=== PATIENT | female | born 1935 | race Caucasian/White ===

== ENCOUNTER 2016-09-24 08:25 | Inpatient (IN) | payer OTHER, BC ==
[~2016-09-24] VITALS: Ht 165.1 cm; Wt 57.4 kg
[2016-09-24 09:41] LABS: PLATELET COUNT 378 x10^3mcL (130-400); RED CELL DISTRIBUTION WIDTH 14.2 % (11.5-14.5)
[2016-09-24 09:42] LABS: BASOPHIL % 0 % (0-2)
[2016-09-24 09:49] LABS: CALCIUM 9.1 mg/dL (8.5-10.1); CARBON DIOXIDE 34.9 mmol/L (21-32); CHLORIDE SERUM 98 mmol/L (98-107); CREATININE SERUM 0.9 mg/dL (0.6-1.0); GLUCOSE SERUM 114 mg/dL (74-106); POTASSIUM SERUM 3.5 mmol/L (3.5-5.1); SODIUM SERUM 138 mmol/L (136-145)
[2016-09-24 09:53] LABS: ALKALINE PHOSPHATASE 114 U/L (46-116); ALT/SGPT 11 U/L (14-59); AST/SGOT 14 U/L (15-37); BILIRUBIN TOTAL 0.8 mg/dL (0.20-1.00); TOTAL PROTEIN, SERUM 7.5 g/dL (6.4-8.2)
[2016-09-24 09:54] LABS: ALBUMIN 2.9 g/dL (3.4-5.0)
[2016-09-24] MEDS ORDERED: NEU300 PO (13:23)
[2016-09-24] MEDS ORDERED: ASPIR 8181 MG PO (13:23)
[2016-09-24] MEDS ORDERED: ZANTAC 150150 MG PO (13:24)
[2016-09-24] MEDS ORDERED: NITROFURANTOIN100 MG PO (13:24)
[2016-09-24] MEDS ORDERED: SOTALOL HCL80 MG PO (13:24)
[2016-09-24] MEDS ORDERED: ARICEPT10 MG PO (13:24)
[2016-09-24] MEDS ORDERED: DIOVAN160 MG PO (13:25)
[2016-09-24 14:22] LABS: FREE T4 1.47 ng/dL (0.76-1.46); FREE THYROXINE INDEX 3.3 ug/dL (1.4-4.5); T4(THYROXINE) 9.6 ug/dL (4.7-13.3)
[2016-09-24 14:28] LABS: T3 TOTAL 1.03 ng/mL
[2016-09-24 16:55] VITALS: BP 154/70
[2016-09-24 17:23] VITALS: BP 154/70
[2016-09-24 18:00] VITALS: BP 143/53
[2016-09-24 21:57] VITALS: BP 127/73
[2016-09-25] VITALS (7 sets, daily range): BP systolic 123–146; BP diastolic 51–67; Ht 165.1 cm; Wt 57.4 kg
[2016-09-25 02:44] LABS: PLATELET COUNT 304 x10^3mcL (130-400); RED CELL DISTRIBUTION WIDTH 13.6 % (11.5-14.5)
[2016-09-25 02:46] LABS: CALCIUM 8.4 mg/dL (8.5-10.1); CARBON DIOXIDE 31.9 mmol/L (21-32); CHLORIDE SERUM 100 mmol/L (98-107); GLUCOSE SERUM 123 mg/dL (74-106); MAGNESIUM 1.6 mg/dL (1.8-2.4); PHOSPHOROUS 3.5 mg/dL (2.5-4.9); POTASSIUM SERUM 3.5 mmol/L (3.5-5.1); SODIUM SERUM 137 mmol/L (136-145)
[2016-09-25 05:38] LABS: BAND NEUTROPHIL 12 % (0-10); METAMYELOCTE 7 % (0-2); MONOCYTE 5 % (0-7); MYELOCYTE 5 % (0-2); SEGMENTED NEUTROPHILS 69 % (37-75)
[2016-09-25 05:41] LABS: rbc morphology (normal/abnorm) NORMAL (NORMAL)
[2016-09-25 05:42] LABS: PLATELET MORPHOLOGY LARGE PLATELET SEEN
[2016-09-25 15:31] LABS: LACTIC DEHYDROGENASE (LDH) 343 U/L (100-190)
[2016-09-25 16:05] LABS: GLUCOSE SERUM < 7 mg/dL (74-106)
[2016-09-25 16:11] LABS: UA SPECIFIC GRAVITY >=1.030 (1.005-1.035); microscopic required? YES; urine erythrocyte 1+ (NEGATIVE)
[2016-09-25 16:25] LABS: SOURCE FLUID PLEURAL
[2016-09-25 16:26] LABS: APPEARANCE FLUID HAZY; COLOR FLUID YELLOW
[2016-09-25 16:31] LABS: LYMPHOCYTE FLUID 10 %; RBC FLUID 375 /cumm; WBC FLUID 3970 /cumm
[2016-09-26 06:05] LABS: PLATELET COUNT 281 x10^3mcL (130-400)
[2016-09-26 06:17] LABS: CALCIUM 8.5 mg/dL (8.5-10.1); CHLORIDE SERUM 102 mmol/L (98-107); CREATININE SERUM 0.9 mg/dL (0.6-1.0); GLUCOSE SERUM 116 mg/dL (74-106); MAGNESIUM 2.8 mg/dL (1.8-2.4); POTASSIUM SERUM 3.7 mmol/L (3.5-5.1); SODIUM SERUM 138 mmol/L (136-145)
[2016-09-26 06:39] VITALS: BP 115/43
[2016-09-26 08:14] LABS: RED CELL DISTRIBUTION WIDTH 14.9 % (11.5-14.5)
[2016-09-26 10:00] VITALS: BP 110/56
[2016-09-26 10:34] LABS: BAND NEUTROPHIL 0 % (0-10); BASOPHIL 0 % (0-2); MONOCYTE 5 % (0-7); SEGMENTED NEUTROPHILS 94 % (37-75)
[2016-09-26 10:35] LABS: rbc morphology (normal/abnorm) ABNORMAL (NORMAL)
[2016-09-26 10:36] LABS: PLATELET MORPHOLOGY LARGE PLATELET SEEN
[2016-09-26 13:44] VITALS: BP 111/77
[2016-09-26 16:40] VITALS: BP 119/56
[2016-09-26 21:31] VITALS: BP 136/66
[2016-09-27 06:09] VITALS: BP 142/63
[2016-09-27 06:27] LABS: PLATELET COUNT 260 x10^3mcL (130-400); RED CELL DISTRIBUTION WIDTH 14.4 % (11.5-14.5)
[2016-09-27 07:01] LABS: CALCIUM 8.3 mg/dL (8.5-10.1); CARBON DIOXIDE 30.5 mmol/L (21-32); CHLORIDE SERUM 106 mmol/L (98-107); CREATININE SERUM 0.9 mg/dL (0.6-1.0); GLUCOSE SERUM 113 mg/dL (74-106); PHOSPHOROUS 2.5 mg/dL (2.5-4.9); POTASSIUM SERUM 4.2 mmol/L (3.5-5.1); SODIUM SERUM 139 mmol/L (136-145)
[2016-09-27 09:52] VITALS: BP 131/60
[2016-09-27 10:05] LABS: BAND NEUTROPHIL 0 % (0-10); BASOPHIL 0 % (0-2); MONOCYTE 4 % (0-7); SEGMENTED NEUTROPHILS 93 % (37-75)
[2016-09-27 10:07] LABS: rbc morphology (normal/abnorm) ABNORMAL (NORMAL)
[2016-09-27 14:04] VITALS: BP 134/58
[2016-09-27 18:08] VITALS: BP 134/72
[2016-09-27 22:08] VITALS: BP 114/75
[2016-09-28 07:01] VITALS: BP 152/82
[2016-09-28 07:10] LABS: CALCIUM 8.1 mg/dL (8.5-10.1); CARBON DIOXIDE 28.5 mmol/L (21-32); CHLORIDE SERUM 105 mmol/L (98-107); CREATININE SERUM 0.8 mg/dL (0.6-1.0); GLUCOSE SERUM 109 mg/dL (74-106); MAGNESIUM 1.8 mg/dL (1.8-2.4); PHOSPHOROUS 3.1 mg/dL (2.5-4.9); SODIUM SERUM 137 mmol/L (136-145)
[2016-09-28 07:51] LABS: PLATELET COUNT 233 x10^3mcL (130-400); RED CELL DISTRIBUTION WIDTH 13.8 % (11.5-14.5)
[2016-09-28 09:57] VITALS: BP 173/77
[2016-09-28 12:15] LABS: BAND NEUTROPHIL 1 % (0-10); BASOPHIL 0 % (0-2); MONOCYTE 5 % (0-7); SEGMENTED NEUTROPHILS 93 % (37-75)
[2016-09-28 12:16] LABS: PLATELET MORPHOLOGY PLATELETS NORMAL; rbc morphology (normal/abnorm) ABNORMAL (NORMAL)
[2016-09-28 12:28] VITALS: BP 133/76
[2016-09-28 18:10] VITALS: BP 135/63
[2016-09-28 21:40] VITALS: BP 147/69
[2016-09-29 06:36] LABS: PLATELET COUNT 272 x10^3mcL (130-400)
[2016-09-29 06:41] VITALS: BP 158/84
[2016-09-29 06:48] LABS: CALCIUM 8.3 mg/dL (8.5-10.1); CARBON DIOXIDE 29.3 mmol/L (21-32); CHLORIDE SERUM 104 mmol/L (98-107); CREATININE SERUM 0.7 mg/dL (0.6-1.0); GLUCOSE SERUM 103 mg/dL (74-106); MAGNESIUM 1.7 mg/dL (1.8-2.4); PHOSPHOROUS 3.1 mg/dL (2.5-4.9); POTASSIUM SERUM 4.8 mmol/L (3.5-5.1); SODIUM SERUM 137 mmol/L (136-145)
[2016-09-29 07:14] LABS: RED CELL DISTRIBUTION WIDTH 15.3 % (11.5-14.5)
[2016-09-29 09:25] VITALS: BP 163/79
[2016-09-29] MEDS ORDERED: LEVAQUIN750 MG PO (10:05)
[2016-09-29] MEDS ORDERED: CLEOCIN HCL300 MG PO (10:05)
[2016-09-29] MEDS ORDERED: COL100 PO (10:06)
[2016-09-29] MEDS ORDERED: LAC PO (10:06)
[2016-09-29] MEDS ORDERED: MECLIZINE HCL12.5 MG PO (10:06)
[2016-09-29 12:49] LABS: BAND NEUTROPHIL 2 % (0-10); BASOPHIL 0 % (0-2); MONOCYTE 7 % (0-7); SEGMENTED NEUTROPHILS 89 % (37-75); rbc morphology (normal/abnorm) NORMAL (NORMAL)
[2016-09-29 12:50] LABS: PLATELET MORPHOLOGY PLATELETS NORMAL
[2016-09-29] MEDS ORDERED: LEVAQUIN750 MG IV (17:02)
[2016-09-29] MEDS ORDERED: CLEOCIN HCL300 MG IV (17:02)
[2016-09-29 17:08] VITALS: BP 157/73
[2016-09-29] MEDS ORDERED: NOVAPLUS CLINDA1 SO1 IV (17:28)
[2016-09-29] MEDS ORDERED: LEV500PM IV (17:28)
[2016-09-29 17:33] VITALS: BP 157/73
== END 2016-09-29 19:35 | DRG 177 ==
LOC: ED 08:25 → DU 13:05 → MU 13:05 → DU 14:20 → MU 09-29 05:36
PROVIDERS: Family Medicine; ADMIT Family Medicine
PROC: 0W9B3ZZ Drainage of Left Pleural Cavity, Percutaneous Approach (ICD-10-PCS; principal; 2016-09-25)
DX: J69.0 Pneumonitis due to inhalation of food and vomit (principal); J96.00 Acute respiratory failure, unspecified whether with hypoxia or hypercapnia; G93.41 Metabolic encephalopathy; I50.43 Acute on chronic combined systolic (congestive) and diastolic (congestive) heart failure; N17.0 Acute kidney failure with tubular necrosis; J91.8 Pleural effusion in other conditions classified elsewhere; N39.0 Urinary tract infection, site not specified; E44.0 Moderate protein-calorie malnutrition; I11.0 Hypertensive heart disease with heart failure; R55 Syncope and collapse; G14 Postpolio syndrome; E78.5 Hyperlipidemia, unspecified; K21.9 Gastro-esophageal reflux disease without esophagitis; G30.9 Alzheimer's disease, unspecified; F02.80 Dementia in other diseases classified elsewhere, unspecified severity, without behavioral disturbance, psychotic disturbance, mood disturbance, and anxiety; Z86.73 Personal history of transient ischemic attack (TIA), and cerebral infarction without residual deficits; Z86.12 Personal history of poliomyelitis; Z68.23 Body mass index [BMI] 23.0-23.9, adult
CPT/HCPCS: 32555; 36600; 82947; 82962; 83880; 84439; 97110-GP; 97116-GP; 97530-GP; C1729; C9113; J1885; J1940; J1956; J2405; J3475; J3490; J7030; J7050; J7620; Q0092

== ENCOUNTER 2017-02-01 12:43 | Inpatient (IN) | payer OTHER, BC ==
[2017-02-01] VITALS (7 sets, daily range): BP systolic 73–91; BP diastolic 40–62
[~2017-02-01] VITALS: Ht 165.1 cm; Wt 51.0 kg
[~2017-02-01 12:43] MED LIST: ARICEPT10 MG PO; ASPIR 8181 MG PO; CLEOCIN HCL300 MG IV; CLEOCIN HCL300 MG PO; COL100 PO; DIOVAN160 MG PO; LAC PO; LEV500PM IV; LEVAQUIN750 MG IV; LEVAQUIN750 MG PO; MECLIZINE HCL12.5 MG PO; NEU300 PO; NITROFURANTOIN100 MG PO; NOVAPLUS CLINDA1 SO1 IV; SOTALOL HCL80 MG PO; ZANTAC 150150 MG PO
[2017-02-01 14:01] LABS: PLATELET COUNT 298 x10^3mcL (130-400)
[2017-02-01 14:05] LABS: RED CELL DISTRIBUTION WIDTH 18.1 % (11.5-14.5)
[2017-02-01 14:31] LABS: UA SPECIFIC GRAVITY >=1.030 (1.005-1.035); microscopic required? YES; urine erythrocyte TRACE (NEGATIVE)
[2017-02-01 14:33] LABS: BAND NEUTROPHIL 3 % (0-10); BASOPHIL 0 % (0-2); MONOCYTE 4 % (0-7); SEGMENTED NEUTROPHILS 89 % (37-75); rbc morphology (normal/abnorm) ABNORMAL (NORMAL)
[2017-02-01 14:45] LABS: CALCIUM 8.8 mg/dL (8.5-10.1); CHLORIDE SERUM 98 mmol/L (98-107); GLUCOSE SERUM 126 mg/dL (74-106); POTASSIUM SERUM 5.4 mmol/L (3.5-5.1); SODIUM SERUM 134 mmol/L (136-145)
[2017-02-01] MEDS ORDERED: ZANTAC 150150 MG PO ×2 (14:47→14:53)
[2017-02-01] MEDS ORDERED: ASPIRIN ADULT L81 M5 PO (14:47)
[2017-02-01] MEDS ORDERED: NITROFURANTOIN100 MG PO (14:48)
[2017-02-01] MEDS ORDERED: NEU300 PO (14:48)
[2017-02-01] MEDS ORDERED: SOTALOL HCL80 MG PO (14:49)
[2017-02-01 14:50] LABS: ALBUMIN 1.7 g/dL (3.4-5.0); ALKALINE PHOSPHATASE 165 U/L (46-116); ALT/SGPT 33 U/L (14-59); AST/SGOT 40 U/L (15-37); BILIRUBIN TOTAL 0.7 mg/dL (0.20-1.00); TOTAL PROTEIN, SERUM 7.5 g/dL (6.4-8.2)
[2017-02-01] MEDS ORDERED: ARICEPT10 MG PO (14:50)
[2017-02-01] MEDS ORDERED: DIOVAN160 MG PO (14:50)
[2017-02-01] MEDS ORDERED: EPZICOM1 TAB (14:51)
[2017-02-01] MEDS ORDERED: TRAMADOL HCL50 MG PO (14:51)
[2017-02-01 15:00] LABS: FREE T4 1.22 ng/dL (0.76-1.46); FREE THYROXINE INDEX 1.6 ug/dL (1.4-4.5)
[2017-02-01 15:20] LABS: MAGNESIUM 2.2 mg/dL (1.8-2.4); PHOSPHOROUS 3.7 mg/dL (2.5-4.9)
[2017-02-01 15:21] LABS: CHOLESTEROL/HDL RATIO 5.5
[2017-02-01 15:30] LABS: T3 TOTAL 0.42 ng/mL
[2017-02-02 04:00] VITALS: BP 100/56
[2017-02-02 07:27] LABS: CALCIUM 7.9 mg/dL (8.5-10.1); CARBON DIOXIDE 26.8 mmol/L (21-32); CHLORIDE SERUM 103 mmol/L (98-107); CREATININE SERUM 1.2 mg/dL (0.6-1.0); GLUCOSE SERUM 107 mg/dL (74-106); MAGNESIUM 2.1 mg/dL (1.8-2.4); PHOSPHOROUS 4.4 mg/dL (2.5-4.9); POTASSIUM SERUM 5.3 mmol/L (3.5-5.1); SODIUM SERUM 135 mmol/L (136-145)
[2017-02-02 07:33] LABS: PLATELET COUNT 216 x10^3mcL (130-400)
[2017-02-02 08:19] VITALS: Ht 165.1 cm; Wt 51.0 kg
[2017-02-02 08:38] VITALS: BP 91/50
[2017-02-02 09:46] LABS: BAND NEUTROPHIL 4 % (0-10); BASOPHIL 0 % (0-2); MONOCYTE 3 % (0-7); SEGMENTED NEUTROPHILS 89 % (37-75)
[2017-02-02 09:49] LABS: rbc morphology (normal/abnorm) ABNORMAL (NORMAL)
[2017-02-02 11:56] VITALS: BP 86/50
[2017-02-02 16:45] VITALS: BP 115/61
[2017-02-02 20:00] VITALS: BP 104/68
[2017-02-03 05:02] LABS: CALCIUM 7.5 mg/dL (8.5-10.1); CARBON DIOXIDE 22.8 mmol/L (21-32); CHLORIDE SERUM 104 mmol/L (98-107); CREATININE SERUM 1.2 mg/dL (0.6-1.0); GLUCOSE SERUM 87 mg/dL (74-106); POTASSIUM SERUM 4.8 mmol/L (3.5-5.1); SODIUM SERUM 137 mmol/L (136-145)
[2017-02-03 05:23] LABS: PLATELET COUNT 190 x10^3mcL (130-400)
[2017-02-03 05:52] LABS: BAND NEUTROPHIL 8 % (0-10); METAMYELOCTE 5 % (0-2); MONOCYTE 3 % (0-7); SEGMENTED NEUTROPHILS 82 % (37-75)
[2017-02-03 05:54] LABS: PLATELET MORPHOLOGY LARGE PLATELET SEEN; rbc morphology (normal/abnorm) ABNORMAL (NORMAL)
[2017-02-03 07:20] VITALS: BP 111/67
[2017-02-03 11:15] VITALS: BP 102/66
[2017-02-03 17:07] VITALS: BP 92/57
[2017-02-03 20:50] VITALS: BP 120/69
[2017-02-04] VITALS (7 sets, daily range): BP systolic 88–119; BP diastolic 39–63
[2017-02-04 06:30] LABS: CALCIUM 7.6 mg/dL (8.5-10.1); CARBON DIOXIDE 21.5 mmol/L (21-32); CHLORIDE SERUM 110 mmol/L (98-107); CREATININE SERUM 1.2 mg/dL (0.6-1.0); GLUCOSE SERUM 87 mg/dL (74-106); MAGNESIUM 1.9 mg/dL (1.8-2.4); PHOSPHOROUS 3.9 mg/dL (2.5-4.9); POTASSIUM SERUM 4.1 mmol/L (3.5-5.1); SODIUM SERUM 141 mmol/L (136-145)
[2017-02-04 06:40] LABS: PLATELET COUNT 149 x10^3mcL (130-400)
[2017-02-04 07:49] LABS: RED CELL DISTRIBUTION WIDTH 18.5 % (11.5-14.5)
[2017-02-04 11:08] LABS: BAND NEUTROPHIL 10 % (0-10); BASOPHIL 0 % (0-2); METAMYELOCTE 4 % (0-2); MONOCYTE 4 % (0-7); SEGMENTED NEUTROPHILS 80 % (37-75)
[2017-02-04 11:09] LABS: PLATELET MORPHOLOGY LARGE PLATELET SEEN; rbc morphology (normal/abnorm) ABNORMAL (NORMAL)
[2017-02-05] VITALS (8 sets, daily range): BP systolic 38–123; BP diastolic 18–86
[2017-02-05 05:00] LABS: PLATELET COUNT 134 x10^3mcL (130-400)
[2017-02-05 05:15] LABS: ALKALINE PHOSPHATASE 138 U/L (46-116); ALT/SGPT 24 U/L (14-59); AST/SGOT 30 U/L (15-37); BILIRUBIN TOTAL 0.4 mg/dL (0.20-1.00); CALCIUM 7.6 mg/dL (8.5-10.1); CARBON DIOXIDE 19.4 mmol/L (21-32); CHLORIDE SERUM 112 mmol/L (98-107); CREATININE SERUM 1.2 mg/dL (0.6-1.0); GLUCOSE SERUM 90 mg/dL (74-106); POTASSIUM SERUM 3.6 mmol/L (3.5-5.1); SODIUM SERUM 143 mmol/L (136-145)
[2017-02-05 05:17] LABS: TOTAL PROTEIN, SERUM 4.7 g/dL (6.4-8.2)
[2017-02-05 05:33] LABS: RED CELL DISTRIBUTION WIDTH 18.7 % (11.5-14.5)
[2017-02-05 05:56] LABS: BAND NEUTROPHIL 11 % (0-10); METAMYELOCTE 6 % (0-2); MONOCYTE 1 % (0-7); SEGMENTED NEUTROPHILS 80 % (37-75)
[2017-02-05 05:58] LABS: ovalocyte/elliptocyte 1+; rbc morphology (normal/abnorm) ABNORMAL (NORMAL); tear drop cell (dacryocyte) 1+
[2017-02-05 19:47] LABS: PLATELET COUNT 140 x10^3mcL (130-400)
[2017-02-05 19:56] LABS: CALCIUM 6.7 mg/dL (8.5-10.1); CARBON DIOXIDE 11.6 mmol/L (21-32); CHLORIDE SERUM 113 mmol/L (98-107); CREATININE SERUM 1.3 mg/dL (0.6-1.0); GLUCOSE SERUM 176 mg/dL (74-106); POTASSIUM SERUM 3.6 mmol/L (3.5-5.1); SODIUM SERUM 142 mmol/L (136-145)
[2017-02-05 19:59] LABS: RED CELL DISTRIBUTION WIDTH 19.4 % (11.5-14.5)
[2017-02-05 20:37] LABS: BAND NEUTROPHIL 12 % (0-10); BASOPHIL 0 % (0-2); METAMYELOCTE 5 % (0-2); MONOCYTE 12 % (0-7); SEGMENTED NEUTROPHILS 69 % (37-75); rbc morphology (normal/abnorm) ABNORMAL (NORMAL)
[2017-02-05 20:38] LABS: ovalocyte/elliptocyte 1+; tear drop cell (dacryocyte) 1+
[2017-02-06 03:09] VITALS: BP 127/78
[2017-02-06 04:54] VITALS: BP 62/27
[2017-02-06 06:09] LABS: CALCIUM 7.4 mg/dL (8.5-10.1); CHLORIDE SERUM 106 mmol/L (98-107); CREATININE SERUM 1.6 mg/dL (0.6-1.0); GLUCOSE SERUM 268 mg/dL (74-106); MAGNESIUM 2.2 mg/dL (1.8-2.4); POTASSIUM SERUM 5.2 mmol/L (3.5-5.1); SODIUM SERUM 134 mmol/L (136-145)
[2017-02-06 06:13] LABS: CARBON DIOXIDE 6.7 mmol/L (21-32)
[2017-02-06 06:16] LABS: PLATELET COUNT 101 x10^3mcL (130-400); RED CELL DISTRIBUTION WIDTH 19.3 % (11.5-14.5)
[2017-02-06 06:59] LABS: ATYPICAL LYMPH 1 %; BAND NEUTROPHIL 12 % (0-10); METAMYELOCTE 8 % (0-2); MONOCYTE 3 % (0-7); MYELOCYTE 1 % (0-2); SEGMENTED NEUTROPHILS 69 % (37-75); rbc morphology (normal/abnorm) ABNORMAL (NORMAL)
[2017-02-06 07:01] LABS: PATH REVIEW for HEMA YES
[2017-02-06 07:58] VITALS: BP 54/37
[2017-02-06 08:05] VITALS: BP 59/22
[2017-02-07 07:48] LABS: SOURCE FLUID PLEURAL FLUID
== END 2017-02-06 12:56 | disposition expired | DRG 853 ==
LOC: ED 12:43 → DU 14:06 → IC 14:06 → DU 15:12 → IC 21:45 → DU 02-03 11:41 → IC 02-05 18:02
PROVIDERS: Emergency Medicine; Family Medicine; ADMIT Family Medicine
PROC: 05HM33Z Insertion of Infusion Device into Right Internal Jugular Vein, Percutaneous Approach (ICD-10-PCS; 2017-02-01)
PROC: B543ZZA Ultrasonography of Right Jugular Veins, Guidance (ICD-10-PCS; 2017-02-01)
PROC: 0JB70ZZ Excision of Back Subcutaneous Tissue and Fascia, Open Approach (ICD-10-PCS; principal; 2017-02-02)
PROC: 0BH17EZ Insertion of Endotracheal Airway into Trachea, Via Natural or Artificial Opening (ICD-10-PCS; 2017-02-05)
PROC: 5A1935Z Respiratory Ventilation, Less than 24 Consecutive Hours (ICD-10-PCS; 2017-02-05)
PROC: 0W9930Z Drainage of Right Pleural Cavity with Drainage Device, Percutaneous Approach (ICD-10-PCS; 2017-02-06)
DX: A41.9 Sepsis, unspecified organism (principal); J69.0 Pneumonitis due to inhalation of food and vomit; J86.9 Pyothorax without fistula; J96.00 Acute respiratory failure, unspecified whether with hypoxia or hypercapnia; G93.41 Metabolic encephalopathy; I50.43 Acute on chronic combined systolic (congestive) and diastolic (congestive) heart failure; E43 Unspecified severe protein-calorie malnutrition; N17.0 Acute kidney failure with tubular necrosis; L89.153 Pressure ulcer of sacral region, stage 3; N39.0 Urinary tract infection, site not specified; A04.7 Enterocolitis due to Clostridium difficile; I82.403 Acute embolism and thrombosis of unspecified deep veins of lower extremity, bilateral; E87.1 Hypo-osmolality and hyponatremia; Z68.1 Body mass index [BMI] 19.9 or less, adult; R64 Cachexia; R65.20 Severe sepsis without septic shock; I11.0 Hypertensive heart disease with heart failure; K21.9 Gastro-esophageal reflux disease without esophagitis; I48.2 Chronic atrial fibrillation; G30.9 Alzheimer's disease, unspecified; F02.80 Dementia in other diseases classified elsewhere, unspecified severity, without behavioral disturbance, psychotic disturbance, mood disturbance, and anxiety; E87.5 Hyperkalemia; E03.9 Hypothyroidism, unspecified; Z74.01 Bed confinement status; Z86.12 Personal history of poliomyelitis; Z86.73 Personal history of transient ischemic attack (TIA), and cerebral infarction without residual deficits; Z66 Do not resuscitate
CPT/HCPCS: 32555; 36556; 36600; 83880; 84439; 85060; 87046; 87046-59; 92610-GN; 94150; A4628; A7042; C1729; J0696; J1642; J1644; J1956; J2001; J2060; J2270; J2370; J2543; J3370; J3490; J7030; J7040; J7620; Q0092